=== PATIENT | female | born 1975 | race Caucasian/White ===

== ENCOUNTER 2016-06-11 10:25 | Emergency (ER) | payer OTHER ==
[~2016-06-11] VITALS: Ht 166.4 cm; Wt 70.3 kg
[2016-06-11 10:32] VITALS: BP 98/66
[2016-06-11] MEDS ORDERED: TRI-PREVIFEM T1 EACH PO (11:25)
[2016-06-11] MEDS ORDERED: AMOX-CLAV 875-1 EACH PO (11:25)
--- NOTE | 2016-06-11 11:34 | RADIOLOGY REPORT ---
EXAMINATION: XR FINGER, LEFT CLINICAL INFORMATION: Pain and swelling COMPARISON: None TECHNIQUE: Three views of the left fifth digit. FINDINGS: There is flexion at the PIP joint of the fifth digit. An oblique nondisplaced fracture is seen involving the midshaft of the fifth middle phalanx. There is mild adjacent soft tissue swelling. The bones of the hand are otherwise unremarkable. IMPRESSION: Nondisplaced oblique fracture involving the midshaft of the fifth middle phalanx. Overlying soft tissue swelling.
--- NOTE | 2016-06-11 11:41 | ED HAND/WRIST INJURY COMPLAINT ---
History of Present Illness General Chief Complaint: Hand or Wrist Injury Stated Complaint: "I THINK I BROKE MY FINGER" LEFT PINKY Source: patient Exam Limitations: no limitations Vital Signs & Intake/Output Vital Signs & Intake/Output Vital Signs Date Time Temp Pulse Resp B/P Pulse O2 O2 Flow FiO2 Ox Delivery Rate 06/11 1032 97.4 85 20 98/66 98 Room Air Room Air Allergies Coded Allergies: NO KNOWN ALLERGIES (06/11/16) Reconcile Medications Amoxicillin/Clavulanate Potass (Amox-Clav 875-125 MG Tablet) 875 MG-125 MG TABLET 1 TAB PO BID ANTIBIOTIC, INFECTION (Reported) Norgestimate-Ethinyl Estradiol (Tri-Previfem Tablet) [id number] 28 TABLET 1 TAB PO DAILY BC (Reported) Triage Note: PT TO ED S/P FALL IN THE SNOW/ICE LAST NIGHT. TO ED WITH C/O LEFT PINKY SWELLING AND PAIN. Triage Nurses Notes Reviewed? yes Occurred: yesterday Duration: day(s): (1), constant, continues in ED Timing: recent history Injury Environment: home : No Patient currently breastfeeds: No HPI: 40-year-old female comes into emergency room for further evaluation of left fifth finger pain. Patient reports that she was drinking alcohol yesterday and fell at some point but does not recall the injury. Patient woke up today and has pain and swelling to her left fifth finger. Some associated bruising. Denies any injury or trauma anywhere else on her body. Denies any other associated symptoms. Past History Travel History Traveled to [place] past 21 day No Medical History Any Pertinent Medical History? see below for history Neurological: NONE EENT: NONE Cardiovascular: NONE Respiratory: NONE Gastrointestinal: NONE Hepatic: NONE Renal: NONE Musculoskeletal: NONE Psychiatric: NONE Endocrine: NONE Blood Disorders: anemia Cancer(s): NONE FOOD TRUCK CATERER/Reproductive: ECTOPIC, L FALLOPIAN REMOVED Surgical History Surgical History: non-contributory Psychosocial History What is your primary language Croatian Tobacco Use: Never used ETOH Use: occasional use Illicit Drug Use: denies illicit drug use Family History Hx Contributory? No Review of Systems Review of Systems Constitutional: Reports: no symptoms. EENTM: Reports: no symptoms. Respiratory: Reports: no symptoms. Cardiovascular: Reports: no symptoms. GI: Reports: no symptoms. Genitourinary: Reports: no symptoms. Musculoskeletal: Reports: see HPI. Skin: Reports: no symptoms. Neurological/Psychological: Reports: no symptoms. Hematologic/Endocrine: Reports: no symptoms. Immunologic/Allergic: Reports: no symptoms. All Other Systems: Reviewed and Negative Physical Exam Physical Exam General Appearance: well developed/nourished, mild distress Head: atraumatic Eyes: Bilateral: normal appearance. Ears, Nose, Throat: normal ENT inspection, hearing grossly normal Neck: normal inspection Cardiovascular/Respiratory: no respiratory distress Back: normal inspection Hand Left: ecchymosis, limited range of motion, swelling, tender, 5th finger Hand Right: normal inspection Neurologic/Tendon: normal sensation, normal motor functions, normal tendon functions, responds to pain, no evidence tendon injury, no pulse deficit Skin: intact, normal color, warm/dry Lymphatic: no anterior cervical saritha Progress Differential Diagnosis: contusion, compartment syndrome, dislocation, fracture, paronychia, sprain, tenosynovitis Plan of Care: 06/11/2016 12:24:53 PM Patient clinically looks well. Nontoxic-appearing. In no apparent distress. Follow-up with orthopedic. Diagnostic Imaging: Viewed by Me: Radiology Read. Discussed w/RAD: Radiology Read. Radiology Impression: EXAM TYPE: RAD - XRY-FINGERS, LEFT EXAMINATION: XR FINGER, LEFT CLINICAL INFORMATION: Pain and swelling COMPARISON: None TECHNIQUE: Three views of the left fifth digit. FINDINGS: There is flexion at the PIP joint of the fifth digit. An oblique nondisplaced fracture is seen involving the midshaft of the fifth middle phalanx. There is mild adjacent soft tissue swelling. The bones of the hand are otherwise unremarkable. IMPRESSION: Nondisplaced oblique fracture involving the midshaft of the fifth middle phalanx. Overlying soft tissue swelling. DICTATED BY: MEENA CEDILLO MD DATE/TIME DICTATED:06/11/161128 DEATH CLAIM CLERK:CITLALY Departure Departure Disposition: HOME OR SELF CARE Condition: Stable Clinical Impression Primary Impression: Finger fracture, left Referrals: THELMA DUBON,TOSHIA SENA MD,BRIAN (PCP/Family) Additional Instructions: Ice. Rest. Motrin for pain. Elevation. Follow-up with orthopedic doctor provided in 3-5 days. Stay in splint until then. Return if any other concerns worsening symptoms. Departure Forms: Customer Survey General Discharge Information Procedures Splinting Location: Left fifth finger Manual Alignment Performed: No Pre-Made Type: metal finger splint Splint Applied By: splint applied by me Pre-Proc Neuro Vasc Exam: normal Post-Proc Neuro Vasc Exam: normal
== END 2016-06-11 11:46 ==
LOC: ERH 10:25
DX: S62.627A Displaced fracture of middle phalanx of left little finger, initial encounter for closed fracture (principal); W19.XXXA Unspecified fall, initial encounter
CPT/HCPCS: 73140-LT